=== PATIENT | female | born 1985 | race American Indian/Alaskan Native ===

== ENCOUNTER 2020-06-23 21:42 | Emergency (ER) | payer SELFPAY ==
[2020-06-23 22:13] VITALS: BP 123/84
[2020-06-23] MEDS ORDERED: ASPIRIN 325 MG TAB PO ONE (22:25)
[2020-06-23 23:00] LABS: Basophils # (Auto) 0.1 K/mm3 (0.0-0.1); Basophils % (Auto) 0.8 % (0.0-1.8); Eosinophils # (Auto) 0.1 K/mm3 (0.0-0.4); Hematocrit 28.7 % (30.3-42.9); Hemoglobin 9.2 gm/dl (10.1-14.3); Lymphocytes # (Auto) 2.4 K/mm3 (1.2-5.4); Lymphocytes % (Auto) 31.8 % (13.4-35.0); Mean Corpuscular HGB Conc 32 % (30-34); Mean Corpuscular Volume 78 fl (79-97); Monocytes # (Auto) 0.4 K/mm3 (0.0-0.8); Monocytes % (Auto) 5.6 % (0.0-7.3); Platelet Count 386 K/mm3 (140-440); Red Blood Count 3.68 M/mm3 (3.65-5.03); Red Cell Distribution Width 19.1 % (13.2-15.2)
[2020-06-23 23:19] LABS: Blood Urea Nitrogen 11 mg/dL (7-17); Calcium 9.2 mg/dL (8.4-10.2); Hemolysis Index 0
[2020-06-23 23:32] LABS: BUN/Creatinine Ratio 18
== END 2020-06-24 | disposition left against medical advice (07) ==
LOC: ED 21:42
DX: R07.89 Other chest pain (principal); R06.02 Shortness of breath; Z53.21 Procedure and treatment not carried out due to patient leaving prior to being seen by health care provider
CPT/HCPCS: 36415; 80048; 84484; 84703; 85025; 93005

== ENCOUNTER 2021-12-20 08:50 | Emergency (ER) | payer SELFPAY ==
[2021-12-20 08:59] VITALS: BP 130/79
--- NOTE | 2021-12-20 14:41 | Emergency Department Report ---
ED Chest Pain HPI - General Chief Complaint: Chest Pain Stated Complaint: JAW PAIN/CP/HEADACHE Source: patient Mode of arrival: Ambulatory Limitations: No Limitations - History of Present Illness Initial Comments: 36-year-old female presents to the ED complaining of chest pain that started this a.m.. Patient states that she has a history of anxiety. She states that chest pain is a current 6 out of 10. She states taking BuSpar this morning without any relief. Patient states she has 2 family member who has currently of a myocardial infarction in the last couple months. She has a history of hypertension. Patient denies any shortness of breath abdominal pain nausea vomiting. Patient is alert and oriented x3. No acute distress noted. No ill appearance noted. -: Gradual Pain Radiation: none Severity scale (0 -10): 7 Quality: aching Consistency: intermittent Improves With: nothing Worsens With: nothing - Related Data Home Medications Medication Instructions Recorded Confirmed Last Taken Sertraline [Zoloft] 50 mg PO QDAY 03/01/14 03/01/14 02/28/14 1 Previous Rx's Medication Instructions Recorded Last Taken Type HYDROcodone/APAP 7.5-325 [[place] 1 each PO Q6HR PRN #30 tablet 03/02/14 Unknown Rx 7.5/325 mg] Ibuprofen [Motrin] 800 mg PO Q8HR PRN #20 tablet 04/10/15 Unknown Rx Nitrofurantoin [place]/M-Cryst 100 mg PO Q12HR #14 capsule 04/10/15 Unknown Rx [Macrobid CAP] Cyclobenzaprine [Flexeril 10 MG 10 mg PO TID PRN #15 tablet 05/28/15 Unknown Rx TAB] traMADoL [Ultram] 50 mg PO Q6HR PRN #21 tablet 05/28/15 Unknown Rx Allergies Allergy/AdvReac Type Severity Reaction Status Date / Time diphenhydramine HCl Allergy Shortness Verified 12/20/21 08:59 [From Benadryl] of Breath indomethacin [From Indocin] Allergy Vomiting Verified 12/20/21 08:59 indomethacin sodium Allergy Vomiting Verified 12/20/21 08:59 [From Indocin] tramadol HCl [From Ultram] Allergy Itching Verified 12/20/21 08:59 Heart Score - HEART Score History: Slightly suspicious EKG: Normal Age: < 45 Risk factors: 1-2 risk factors Troponin: < normal limit HEART Score: 1 - EKG Read Time Time EKG Completed: 09:00 EKG Read Time: 14:41 ED Review of Systems ROS: Stated complaint: JAW PAIN/CP/HEADACHE Other details as noted in HPI Constitutional: denies: chills, fever Eyes: denies: eye pain, eye discharge, vision change ENT: denies: ear pain, throat pain Respiratory: denies: cough, shortness of breath, wheezing Cardiovascular: denies: chest pain, palpitations Endocrine: no symptoms reported Gastrointestinal: denies: abdominal pain, nausea, diarrhea Genitourinary: denies: urgency, dysuria, discharge Musculoskeletal: denies: back pain, joint swelling, arthralgia Skin: denies: rash, lesions Neurological: denies: headache, weakness, paresthesias Psychiatric: denies: anxiety, depression Hematological/Lymphatic: denies: easy bleeding, easy bruising ED Past Medical Hx - Past Medical History Hx Congestive Heart Failure: Yes Hx Psychiatric Treatment: Yes (depressio/anxiety) Hx Asthma: Yes Additional medical history: heart murmur - Surgical History Additional Surgical History: right leg 2005 / c sections x 2 - Social History Smoking Status: Never Smoker Substance Use Type: None - Medications Home Medications: Home Medications Medication Instructions Recorded Confirmed Last Taken Type Sertraline [Zoloft] 50 mg PO QDAY 03/01/14 03/01/14 02/28/14 History 1 HYDROcodone/APAP 7.5-325 [[place] 1 each PO Q6HR PRN #30 tablet 03/02/14 Unknown Rx 7.5/325 mg] Ibuprofen [Motrin] 800 mg PO Q8HR PRN #20 tablet 04/10/15 Unknown Rx Nitrofurantoin [place]/M-Cryst 100 mg PO Q12HR #14 capsule 04/10/15 Unknown Rx [Macrobid CAP] Cyclobenzaprine [Flexeril 10 MG 10 mg PO TID PRN #15 tablet 05/28/15 Unknown Rx TAB] traMADoL [Ultram] 50 mg PO Q6HR PRN #21 tablet 05/28/15 Unknown Rx ED Physical Exam - General Limitations: No Limitations General appearance: alert, in no apparent distress - Head Head exam: Present: atraumatic, normocephalic - Eye Eye exam: Present: normal appearance - ENT ENT exam: Present: mucous membranes moist - Neck Neck exam: Present: normal inspection - Respiratory Respiratory exam: Present: normal lung sounds bilaterally. Absent: respiratory distress - Cardiovascular Cardiovascular Exam: Present: regular rate, normal rhythm. Absent: systolic murmur, diastolic murmur, rubs, gallop - GI/Abdominal GI/Abdominal exam: Present: soft, normal bowel sounds - Extremities Exam Extremities exam: Present: normal inspection - Back Exam Back exam: Present: normal inspection - Neurological Exam Neurological exam: Present: alert, oriented X3 - Psychiatric Psychiatric exam: Present: normal affect, normal mood - Skin Skin exam: Present: warm, dry, intact, normal color. Absent: rash ED Course Vital Signs 12/20/21 08:59 Temperature 98.7 F Pulse Rate 87 Respiratory 20 Rate Blood Pressure 130/79 [Right] O2 Sat by Pulse 100 Oximetry ARNULFO score - Arnulfo Score Age > 65: (0) No Aspirin use within the Past 7 Days: (0) No 3 or more CAD Risk Factors: (0) No 2 or more Angina events in past 24 hrs: (0) No Known CAD with more than 50% Stenosis: (0) No Elevated Cardiac Markers: (0) No ST Deviation Greater than 0.5mm: (0) No ARNULFO Score: 0 ED Medical Decision Making - Lab Data Result diagrams: 12/20/21 14:52 12/20/21 14:52 - [place] [address] XRay Report Signed Patient: WALESKA IYER MR#: [id number] : 1985 Acct:[id number] Age/Sex: 36 / F ADM Date: 12/20/21 Loc: ED Attending Dr: Ordering Physician: PETER SYED Date of Service: 12/20/21 Procedure(s): XR chest routine 2V Accession Number(s): [id number] cc: PETER SYED Fluoro Time In Minutes: CHEST 1 VIEW 12/20/2021 4:21 PM INDICATION / CLINICAL INFORMATION: Chest Pain. COMPARISON: Chest x-ray on 06/23/2020 FINDINGS: SUPPORT DEVICES: None. HEART / MEDIASTINUM: No significant abnormality. LUNGS / PLEURA: No significant pulmonary or pleural abnormality. No pneumothorax. ADDITIONAL FINDINGS: No significant additional findings. IMPRESSION: 1. No acute findings. Signer Name: Louis Guillermo MD Signed: 12/20/2021 4:26 PM Workstation Name: [id number] Transcribed By: ROBIN Dictated By: Louis Guillermo MD Electronically Authenticated By: Louis Guillermo MD Signed Date/Time: 12/20/211625 DD/ 24 TD/TT: - Medical Decision Making 36-year-old female presents to the ED complaining of chest pain that started this a.m.. Patient states that she has a history of anxiety. She states that chest pain is a current 6 out of 10. She states taking BuSpar this morning without any relief. Patient states she has 2 family member who has currently of a myocardial infarction in the last couple months. She has a history of hypertension. Patient denies any shortness of breath abdominal pain nausea vomiting. Patient is alert and oriented x3. No acute distress noted. No ill appearance noted. Physical examination is unremarkable Rechecked the patient is resting quietly quietly and comfortable and feeling better. I discussed the results of diagnostic study, my clinical impression and the plan for further treatment with the patient. Patient agrees with plan and discharge at this present time. All question addressed. I have given the patient instruction regarding a diagnosis ,expectation ,follow- up and return precaution. I explained to the patient that emergent condition may arise and to return to the ED for new worsen and any new persisting condition. I have explained the importance of following up with the primary care physician or referral physician listed below has instructed. The patient verbalized un derstanding of discharge instruction. Critical care attestation.: If time is entered above; I have spent that time in minutes in the direct care of this critically ill patient, excluding procedure time. ED Disposition Clinical Impression: Chest pain Qualifiers: Chest pain type: other chest pain Qualified Code(s): R07.89 - Other chest pain; R07.8 - Other chest pain Iron deficiency anemia Qualifiers: Iron deficiency anemia type: other iron deficiency Qualified Code(s): D50.8 - Other iron deficiency anemias Disposition: 01 HOME / SELF CARE / HOMELESS Is pt being admited?: No Does the pt Need Aspirin: No Condition: Stable Instructions: Nonspecific Chest Pain, Adult, Preventing Iron Deficiency Anemia, Adult Additional Instructions: Take [id number] multivitamin for iron deficiency return to ED for any worsening symptom Referrals: [facility] [Provider Group] - 3-5 Days Forms: Work/School Release Form(ED) Time of Disposition: 16:38
[2021-12-20 15:59] LABS: Hemoglobin 8.9 gm/dl (10.1-14.3); Mean Corpuscular HGB Conc 33 % (30-34); Mean Corpuscular Volume 75 fl (79-97); Platelet Count 439 K/mm3 (140-440); Red Blood Count 3.59 M/mm3 (3.65-5.03); Red Cell Distribution Width 19.8 % (13.2-15.2)
[2021-12-20 16:11] LABS: Alanine Aminotransferase 30 units/L (7-56); Albumin 4.3 g/dL (3.9-5); Blood Urea Nitrogen 11 mg/dL (7-17); Calcium 9.5 mg/dL (8.4-10.2); Hemolysis Index 0
[2021-12-20 16:14] LABS: BUN/Creatinine Ratio 18
--- NOTE | 2021-12-20 16:30 | XRay Report ---
CHEST 1 VIEW 12/20/2021 4:21 PM INDICATION / CLINICAL INFORMATION: Chest Pain. COMPARISON: Chest x-ray on 06/23/2020 FINDINGS: SUPPORT DEVICES: None. HEART / MEDIASTINUM: No significant abnormality. LUNGS / PLEURA: No significant pulmonary or pleural abnormality. No pneumothorax. ADDITIONAL FINDINGS: No significant additional findings. IMPRESSION: 1. No acute findings. Signer Name: Louis Guillermo MD Signed: 12/20/2021 4:26 PM Workstation Name: [id number]
--- NOTE | 2021-12-22 18:09 | Electrocardiograph Report ---
[facility] Test Date: 2021-12-20 Test Time: 09:08:56 Pat Name: WALESKA IYER Department: Room: Gender: F Guest Services Associate: : 1985 Requested By: ED DOC Order Number: [id number] Reading MD: Charles Romero Measurements Intervals Elizabeth Rate: 82 P: 20 MA: 168 QRS: 28 QRSD: 68 T: 10 QT: 381 QTc: 445 Interpretive Statements Sinus rhythm Ventricular premature complex Low voltage, precordial leads No previous ECG available for comparison Electronically Signed On 12-22-2021 18:09:00 EDT by Charles Romero
== END 2021-12-20 17:00 | disposition home or self-care (01) ==
LOC: ED 08:50
DX: R07.9 Chest pain, unspecified (principal); D50.9 Iron deficiency anemia, unspecified; J45.909 Unspecified asthma, uncomplicated; Z86.79 Personal history of other diseases of the circulatory system; Z88.8 Allergy status to other drugs, medicaments and biological substances; Z88.5 Allergy status to narcotic agent
CPT/HCPCS: 36415; 71046; 80053; 83690; 84484; 84703; 85027; 93005; 99283